=== PATIENT | male | born 1960 | race Caucasian/White ===

== ENCOUNTER → 2022-02-23 09:32 | Outpatient (CLI) | payer OTHER, SELFPAY ==
[2022-02-23 10:18] LABS: Add Manual Diff / Slide Review NO; Basophils Absolute Auto 0 /uL (0-100); Basophils Percent Auto 0.5 % (0-2); Eosinophils Absolute Auto 100 /uL (0-450); Eosinophils Percent Auto 1.3 % (2-4); Hematocrit 44.4 % (41-53); Hemoglobin 15.2 g/dL (13.5-17.5); Lymphocytes Absolute Auto 1600 /uL (1100-4500); Lymphocytes Percent Auto 18.8 % (25-40); Mean Corpuscular HGB Conc 34.3 % (30-36); Mean Corpuscular Hemoglobin 32.2 PG (26-34); Mean Corpuscular Volume 93.8 fL (80-100); Monocytes Absolute Auto 1100 /uL (0-900); Monocytes Percent Auto 13.1 % (3-14); Neutrophils Absolute Auto 5700 /uL (1500-7000); Neutrophils Percent Auto 66.3 % (50-75); Platelet Count 219 X10^3/uL (150-400); Red Blood Cell Count 4.73 X10^6/uL (4.5-5.9); Red Cell Distribution Width 13.6 % (11.6-14.8); White Blood Cell Count 8.6 X10^3/uL (4.5-11.0)
[2022-02-23 10:32] LABS: Hemoglobin A1C% w Est Avg Glu 5.2 % (4.0-6.0)
[2022-02-23 10:44] LABS: Alanine Aminotransferase 36 IU/L (<50); Albumin 4.4 g/dL (3.5-5.0); Albumin Globulin Ratio 1.3 (1.0-2.8); Alkaline Phosphatase 57 U/L (38-126); Aspartate Aminotransferase 36 IU/L (17-59); BUN Creatinine Ratio 18.5 (6-22); Bilirubin Total 0.8 mg/dL (0.2-1.3); Blood Urea Nitrogen 15 mg/dL (9-20); Calcium 9.1 mg/dL (8.4-10.2); Carbon Dioxide 27 mmol/L (22-32); Chloride 106 mmol/L (98-107); Cholesterol 189 mg/dL (140-199); Estimated Glomerular Filt Rate > 60 mL/min (>60); Globulin 3.3 g/dL (1.7-4.1); Glucose 88 mg/dL (80-110); HDL Cholesterol 52 mg/dL (40-60); HEMOLYSIS 20 (0-50); LDL Cholesterol Calculated 107 mg/dL (<100); Potassium 4.5 mmol/L (3.4-5.1); Sodium 139 mmol/L (137-145); Total Protein 7.7 g/dL (6.3-8.2); Triglycerides 151 mg/dL (35-150)
[2022-02-23 12:06] LABS: Hep C Virus Ab w/Reflex Quant NEGATIVE s/c (NEGATIVE)
== END ==
PROVIDERS: PCP Family Medicine; Referring Provider Family Medicine; Visit Provider Family Medicine
DX: Z11.59 Encounter for screening for other viral diseases (principal); N52.9 Male erectile dysfunction, unspecified; T74.11XA Adult physical abuse, confirmed, initial encounter
CPT/HCPCS: 36415; 80053; 80061; 83036; 85025; 86803

== ENCOUNTER → 2023-03-13 12:15 | Outpatient (CLI) | payer MEDICARE, OTHER, SELFPAY ==
[2023-03-13 14:09] LABS: Alanine Aminotransferase 50 IU/L (<50); Albumin 4.2 g/dL (3.5-5.0); Albumin Globulin Ratio 1.4 (1.0-2.8); Alkaline Phosphatase 54 U/L (38-126); Aspartate Aminotransferase 45 IU/L (17-59); BUN Creatinine Ratio 21.3 (6-22); Bilirubin Total 0.6 mg/dL (0.2-1.3); Blood Urea Nitrogen 19 mg/dL (9-20); Calcium 9.9 mg/dL (8.4-10.2); Carbon Dioxide 28 mmol/L (22-32); Chloride 104 mmol/L (98-107); Cholesterol 192 mg/dL (140-199); Estimated Glomerular Filt Rate > 60 mL/min (>60); Glucose 93 mg/dL (80-110); HDL Cholesterol 56 mg/dL (40-60); HEMOLYSIS < 15 (0-50); LDL Cholesterol Calculated 116 mg/dL (<100); Potassium 4.5 mmol/L (3.4-5.1); Sodium 139 mmol/L (137-145); Total Protein 7.2 g/dL (6.3-8.2); Triglycerides 100 mg/dL (35-150)
[2023-03-13 14:35] LABS: Prostate Specific Antigen Scrn < 0.064 ng/mL (0.1-4.0)
== END ==
PROVIDERS: PCP Family Medicine; Referring Provider Family Medicine; Visit Provider Family Medicine
DX: E78.5 Hyperlipidemia, unspecified (principal); Z12.5 Encounter for screening for malignant neoplasm of prostate; Z85.46 Personal history of malignant neoplasm of prostate; Z00.00 Encounter for general adult medical examination without abnormal findings
CPT/HCPCS: 36415; 80053; 80061; G0103

== ENCOUNTER → 2023-03-21 10:36 | Outpatient (CLI) | payer MEDICARE, OTHER, SELFPAY ==
--- NOTE | 2023-03-21 10:38 | DI.US.S_ITS ---
PROCEDURE: US ABD AORTA ANEURYSM SCREEN INDICATIONS: SCREENING TECHNIQUE: Real time scanning was performed of the aorta and iliac arteries, with image documentation. COMPARISON: None. FINDINGS: Aorta: Proximal aortic diameter measures 2.4 cm. Mid-aorta measures 2 cm. Distal aortic diameter is 1.8 cm. Iliac arteries: Right common iliac artery measures 1.1 cm. Left common iliac artery measures 1.1 cm. IMPRESSION: Negative for aneurysm. Dictated by: Wicho Rivera M.D. on 03/21/2023 at 12:50 Approved by: Wicho Rivera M.D. on 03/21/2023 at 12:50
--- NOTE | 2023-03-21 10:38 | DI.CT.S_ITS ---
PROCEDURE: CT LUNG LOW DOSE SCREENING INDICATIONS: Low Dose Chest CT for Lung cancer screening TECHNIQUE: Noncontrast 2.0-2.5 mm thick sections acquired from the pulmonary apices to the posterior costophrenic angles. 7 mm thick axial MIP, and 5 mm coronal and sagittal reformats were then acquired. For radiation dose reduction, the following was used: automated exposure control, adjustment of mA and/or kV according to patient size. COMPARISON: None. FINDINGS: Image quality: Diagnostic, given the low radiation dose technique. Lungs and pleura: No acute airspace opacities. No pulmonary nodules. No pleural effusion or pneumothorax. Mediastinum: Heart size is normal. No pericardial effusion. No mediastinal adenopathy by size criteria. Thoracic aorta and central pulmonary arteries are normal in size. Esophagus is normal in caliber. No hiatal hernia. Bones and chest wall: No suspicious bony lesions. No vertebral body compression fractures. No axillary or supraclavicular adenopathy by size criteria. Ill-defined low-density thyroid nodules are present bilaterally. Abdomen: Visualized upper abdomen solid organs and bowel loops appear normal in the absence of contrast. IMPRESSION: 1. Bilateral hypodense thyroid nodules. If further characterization is warranted, thyroid ultrasound is recommended. 2. No suspicious pulmonary nodules or acute airspace opacities. LUNG-RADS 1; annual CT surveillance recommended for high-risk patients. Dictated by: Dolly Goldsmith M.D. on 03/21/2023 at 13:40 Approved by: Dolly Goldsmith M.D. on 03/21/2023 at 14:07
== END ==
PROVIDERS: PCP Family Medicine; Referring Provider Family Medicine; Visit Provider Family Medicine
DX: Z13.6 Encounter for screening for cardiovascular disorders (principal); F17.210 Nicotine dependence, cigarettes, uncomplicated; Z00.00 Encounter for general adult medical examination without abnormal findings; E04.2 Nontoxic multinodular goiter; E78.5 Hyperlipidemia, unspecified; Z12.2 Encounter for screening for malignant neoplasm of respiratory organs; Z85.46 Personal history of malignant neoplasm of prostate
CPT/HCPCS: 71271; 76706

== ENCOUNTER → 2023-07-03 12:52 | Outpatient (CLI) | payer MEDICARE, OTHER, SELFPAY ==
--- NOTE | 2023-07-03 12:54 | DI.US.S_ITS ---
PROCEDURE: US THYROID INDICATIONS: NODULES ON CT TECHNIQUE: Real-time scanning was performed of the thyroid gland, with image documentation. COMPARISON: CT lung low-dose screening 03/21/2023. FINDINGS: Right: Thyroid lobe measures 5.1 x 2.7 x 1.9 cm, and is homogeneous in echotexture. Left: Thyroid lobe measures 4.3 x 2.1 x 1.9 cm, and is homogenous in echotexture. Isthmus: 0.3 cm thick. Nodule number: 1 Location: Left superior Size: 4.3 x 2.1 x 1.4 cm. Composition: Solid Echogenicity: Isoechoic Shape: wider than tall. Margins: Smooth Echogenic foci: None Total points: 3 ACR TI-RADS category: Mildly suspicious Nodule number: 2 Location: Right mid Size: 2.9 x 1.5 x 2.7 cm. Composition: Mixed cystic and solid Echogenicity: Isoechoic Shape: wider than tall. Margins: Smooth Echogenic foci: None Total points: 2 ACR TI-RADS category: Not suspicious IMPRESSION: Mildly suspicious 4.3 cm left nodule (nodule 1). Finding meets criteria for ultrasound-guided fine-needle aspiration per ACR TI-RADS guidelines as indicated below. ACR TI-RADS definitions and recommendations: TI-RADS 1 (benign): 0 points. FNA not needed. TI-RADS 2 (not suspicious): 2 points. FNA not needed. TI-RADS 3 (mildly suspicious): 3 points. * FNA if 2.5 cm or larger, follow up if 1.5 cm or larger (at 1, 3, and 5 years). TI-RADS 4 (moderately suspicious): 4-6 points. * FNA if 1.5 cm or larger, follow up if 1 cm or larger (at 1, 2, 3, and 5 years). TI-RADS 5 (highly suspicious): 7 points or more. * FNA if 1 cm or larger, follow up if 0.5 cm or larger (every year for 5 years). Approved by: Evelina Kamara M.D. on 07/04/2023 at 9:26
== END ==
PROVIDERS: PCP Family Medicine; Referring Provider Family Medicine; Visit Provider Family Medicine
DX: E04.2 Nontoxic multinodular goiter (principal)
CPT/HCPCS: 76536

== ENCOUNTER → 2024-03-25 09:38 | Outpatient (CLI) | payer MEDICARE, OTHER, SELFPAY ==
[2024-03-25 10:32] LABS: Add Manual Diff / Slide Review NO; Basophils Absolute Auto 0 /uL (0-100); Basophils Percent Auto 0.3 % (0-2); Eosinophils Absolute Auto 100 /uL (0-450); Eosinophils Percent Auto 0.8 % (2-4); Hematocrit 47.9 % (41-53); Hemoglobin 16.3 g/dL (13.5-17.5); Lymphocytes Absolute Auto 1700 /uL (1100-4500); Lymphocytes Percent Auto 19.4 % (25-40); Mean Corpuscular Hemoglobin 32.5 PG (26-34); Mean Corpuscular Volume 95.5 fL (80-100); Monocytes Absolute Auto 1000 /uL (0-900); Neutrophils Absolute Auto 5900 /uL (1500-7000); Neutrophils Percent Auto 67.5 % (50-75); Platelet Count 210 X10^3/uL (150-400); Red Blood Cell Count 5.02 X10^6/uL (4.5-5.9); Red Cell Distribution Width 13.8 % (11.6-14.8); White Blood Cell Count 8.7 X10^3/uL (4.5-11.0)
[2024-03-25 11:37] LABS: Alanine Aminotransferase 42 IU/L (<50); Albumin 4.5 g/dL (3.5-5.0); Albumin Globulin Ratio 1.6 (1.0-2.8); Alkaline Phosphatase 72 U/L (38-126); Aspartate Aminotransferase 43 IU/L (17-59); BUN Creatinine Ratio 16.5 (6-22); Bilirubin Total 0.7 mg/dL (0.2-1.3); Blood Urea Nitrogen 15 mg/dL (9-20); Calcium 9.8 mg/dL (8.4-10.2); Carbon Dioxide 26 mmol/L (22-32); Chloride 107 mmol/L (98-107); Cholesterol 205 mg/dL (140-199); Estimated Glomerular Filt Rate > 60 mL/min (>60); Globulin 2.8 g/dL (1.7-4.1); Glucose 86 mg/dL (80-110); HDL Cholesterol 66 mg/dL (40-60); HEMOLYSIS < 15 (0-50); LDL Cholesterol Calculated 112 mg/dL (<100); Potassium 4.4 mmol/L (3.4-5.1); Sodium 141 mmol/L (137-145); Total Protein 7.3 g/dL (6.3-8.2); Triglycerides 134 mg/dL (35-150)
[2024-03-25 11:56] LABS: Prostate Specific Antigen Scrn < 0.064 ng/mL (0.1-4.0)
[2024-03-26 15:17] LABS: HIV 1 & 2 Ab/Ag 4th Gen Combo NEGATIVE (NEGATIVE)
== END ==
PROVIDERS: PCP Family Medicine; Referring Provider Family Medicine; Visit Provider Family Medicine
DX: Z00.00 Encounter for general adult medical examination without abnormal findings; E78.5 Hyperlipidemia, unspecified; Z12.5 Encounter for screening for malignant neoplasm of prostate; I82.402 Acute embolism and thrombosis of unspecified deep veins of left lower extremity; Z85.46 Personal history of malignant neoplasm of prostate
CPT/HCPCS: 36415; 80053; 80061; 81241; 85025; 85300; 85303; 85306; 85598; 85613; 86147; 87389; G0103

== ENCOUNTER → 2024-03-27 11:28 | Outpatient (CLI) | payer MEDICARE, OTHER, SELFPAY ==
[2024-03-27 12:37] LABS: INR 1.2 (0.9-1.3); Prothrombin Time 13.8 SECONDS (9.4-12.5)
[2024-03-27 12:40] LABS: PTT Partial Thromboplastin Tim 41 SECONDS (25.1-36.5)
== END ==
PROVIDERS: PCP Family Medicine; Referring Provider Family Medicine; Visit Provider Family Medicine
DX: I82.402 Acute embolism and thrombosis of unspecified deep veins of left lower extremity (principal)
CPT/HCPCS: 36415; 85610; 85730

== ENCOUNTER → 2024-04-15 11:45 | Outpatient (CLI) | payer MEDICARE, OTHER, SELFPAY ==
--- NOTE | 2024-04-15 11:46 | DI.CT.S_ITS ---
PROCEDURE: CT LUNG LOW DOSE SCREENING INDICATIONS: lung screening TECHNIQUE: Noncontrast 2.0-2.5 mm thick sections acquired from the pulmonary apices to the posterior costophrenic angles. 7 mm thick axial MIP, and 5 mm coronal and sagittal reformats were then acquired. For radiation dose reduction, the following was used: automated exposure control, adjustment of mA and/or kV according to patient size. COMPARISON: [facility], CT, CT LUNG LOW DOSE SCREENING, 03/21/2023, 10:43. FINDINGS: Image quality: Diagnostic. Lower Neck: No enlarged lymph nodes. Thyroid: Heterogenous appearing thyroid with possible 3.2 cm right thyroid nodule. Axillae: No enlarged lymph nodes. Chest Wall: Unremarkable. Bones: Incidental hemangioma involving the T6 vertebral body. Otherwise, no acute abnormality or significant degenerative findings. Lungs and Pleura: No pneumothorax or pleural effusions. No consolidation or suspicious nodules. Heart: Heart size is normal. No pericardial effusion. Mild LAD coronary artery calcification. Thoracic Vessels: The aorta and pulmonary arteries demonstrate normal size. Mild scattered atheromatous calcification. Mediastinum and Marie: No enlarged lymph nodes. Esophagus: No wall thickening. No hiatal hernia. Upper Abdomen: Visualized upper abdomen solid organs and bowel loops appear normal. IMPRESSION: No suspicious pulmonary nodules. LUNG-RADS 1; continued annual screening, if eligible. Clinically Significant Non-pulmonary Findings: Heterogenous thyroid gland possibly containing nodules up to 3.2 cm. Recommend dedicated ultrasound of the thyroid for ACR risk stratification. Dictated by: Alton Marquis M.D. on 04/15/2024 at 16:37 Approved by: Alton Marquis M.D. on 04/15/2024 at 16:42
== END ==
PROVIDERS: PCP Family Medicine; Referring Provider Family Medicine; Visit Provider Family Medicine
DX: Z87.891 Personal history of nicotine dependence (principal); Z12.2 Encounter for screening for malignant neoplasm of respiratory organs; I25.10 Atherosclerotic heart disease of native coronary artery without angina pectoris; D18.09 Hemangioma of other sites
CPT/HCPCS: 71271

== ENCOUNTER → 2025-02-05 12:32 | Outpatient (CLI) | payer MEDICARE, OTHER, SELFPAY ==
--- NOTE | 2025-02-05 | PATH_ITS ---
Note [facility] Accession Number: [id number] TESTS RESULT FLAG UNITS REF RANGE LAB Clinician Provided Cytology Information No. of containers..01 Other (Miscellaneous) No. of containers..08 Previously Prepared Cytology Slide Source: LEFT THYROID NODULE DIAGNOSIS: LEFT THYROID NODULE ATYPIA OF UNDETERMINED SIGNIFICANCE. [place] CATEGORY III. ATYPIA OF UNDETERMINED SIGNIFIANCE - NUCLEAR ATYPIA. MOLECULAR STUDIES REQUESTED; RESULTS WILL BE REPORTED SEPARATELY. Pathologist ICD10: R89.6 Signed out by: Joyce Alfonso MD, Pathologist NPI- [id number] Performed by: Farzad Stoll, [place] ([facility]) Gross description: 30 CC, RED, CLEAR RECIEVED: IN CYTOLYT WITH 9 ALCOHOL FIXED AND 9 QUICK STAINED SLIDES ALSO 1 RNA VIAL WILL ON 05-21-2026.VO /VDU 02/08/2025 0935 Local FLAG LEGEND: L-Low Normal,H-High Normal,LL-Alert Low,HH-Alert High <-Panic Low,>-Panic High,A-Abnormal,AA-Critical Abnormal Performed at: 01 [address] [facility], [place] [address] Altno Rosario MD, Performed at: [address] [facility], [place], [place] [id number] MD lAton Rosario MD Phone: [phone]
--- NOTE | 2025-02-05 12:35 | DI.US.S_ITS ---
PROCEDURE: US FINE NEEDLE ASPIRATION INDICATIONS: Thyroid nodule biopsy TECHNIQUE: The indications, alternatives, benefits, risks, and complications of the procedure were explained to the patient. Written informed consent was obtained and placed in the chart. The thyroid region was examined sonographically and a site was chosen for ultrasound guided percutaneous sampling. The skin was prepared and draped in the usual fashion, and anesthetized with 1% lidocaine infiltrated from the skin down to the thyroid gland. Multiple passes were then performed, with contents emptied into an appropriate pathology specimen container. A bandage was applied to the area of access at completion of the study. COMPARISON: [facility], US, US THYROID, 07/03/2023, 13:10. FINDINGS: Location(s) of lesion(s) sampled: Left thyroid nodule [place]: 25 gauge hypodermic needles. Number of passes: 9 Medications: 1% lidocaine for local anaesthesia. Complications: None. IMPRESSION: Successful ultrasound-guided thyroid nodule fine needle aspiration, with cytology results pending. Please see chart below for management recommendations based on cytology results. [facility] ReportingRecommendationsNon-diagnostic* Repeat US-guided FNA, with on-site cytology evaluation if possible. * Repeated non-diagnostic nodules without high suspicion US features: close observation vs surgical consult. * Consider surgery if nodule has high suspicion US features, grows >20% in 2 dimensions on followup, or patient has clinical risk factors for malignancy. Benign* If nodule has high suspicion US features: repeat US and FNA within 12 months. * If nodule has low to intermediate suspicion US features: repeat US at 12-24 months. If nodule grows (20% increase in at least 2 dimensions, with minimal increase of 2 mm or >50% change in volume), or development of new suspicious US features, then repeat FNA or continue followup. * If nodule has very low suspicion US features: followup US at >24 months. Atypia of undetermined significance, follicular lesion of undetermined significanceRepeat FNA, molecular testing, followup US, or surgical consult.Follicular neoplasm, suspicious for follicular neoplasmSurgical consult; also consider molecular testing. Suspicious for malignancySurgical consult.MalignantSurgical consult. Dictated by: Andrew LIAO Interpreted: Jayant Wilcox MD on 02/15/2025 at 8:49 Transcribed by: BRIGETTE on 02/15/2025 at 8:49 Approved by: Jayant Wilcox M.D. on 02/15/2025 at 14:03
== END ==
LOC: US 12:35
PROVIDERS: PCP Family Medicine; Referring Provider Family Medicine; Visit Provider Family Medicine
DX: E04.1 Nontoxic single thyroid nodule (principal)
CPT/HCPCS: 10005

== ENCOUNTER → 2025-04-06 11:51 | Outpatient (CLI) | payer MEDICARE, OTHER, SELFPAY ==
[2025-04-06 12:45] LABS: Hematocrit 41.5 % (41-53); Hemoglobin 14.4 g/dL (13.5-17.5); Mean Corpuscular HGB Conc 34.7 % (30-36); Mean Corpuscular Hemoglobin 32.7 PG (26-34); Mean Corpuscular Volume 94.2 fL (80-100); Platelet Count 170 X10^3/uL (150-400)
[2025-04-06 13:00] LABS: Alanine Aminotransferase 52 IU/L (<50); Albumin 4.3 g/dL (3.5-5.0); Albumin Globulin Ratio 1.5 (1.0-2.8); Alkaline Phosphatase 51 U/L (38-126); Blood Urea Nitrogen 17 mg/dL (9-20); Calcium 9.3 mg/dL (8.4-10.2); Carbon Dioxide 27 mmol/L (22-32); Chloride 106 mmol/L (98-107); Cholesterol 178 mg/dL (140-199); Estimated Glomerular Filt Rate > 60 mL/min (>60); Globulin 2.9 g/dL (1.7-4.1); Glucose 98 mg/dL (70-99); HDL Cholesterol 47 mg/dL (40-60); HEMOLYSIS < 15 (0-50); Potassium 3.9 mmol/L (3.4-5.1); Sodium 139 mmol/L (137-145); Total Protein 7.2 g/dL (6.3-8.2); Triglycerides 196 mg/dL (35-150)
== END ==
PROVIDERS: PCP Family Medicine; Referring Provider Family Medicine; Visit Provider Family Medicine
DX: Z00.00 Encounter for general adult medical examination without abnormal findings (principal); Z12.5 Encounter for screening for malignant neoplasm of prostate; E78.5 Hyperlipidemia, unspecified; E04.1 Nontoxic single thyroid nodule; Z85.46 Personal history of malignant neoplasm of prostate
CPT/HCPCS: 36415; 80053; 80061; 85027; G0103

== ENCOUNTER → 2025-04-15 08:52 | Outpatient (CLI) | payer MEDICARE, OTHER, SELFPAY ==
--- NOTE | 2025-04-15 08:55 | DI.US.S_ITS ---
PROCEDURE: US THYROID INDICATIONS: lung cancer screen TECHNIQUE: Real-time scanning was performed of the thyroid gland, with image documentation. COMPARISON: [facility], US, US THYROID, 07/03/2023, 13:10. FINDINGS: Thyroid: Right lobe measures 4.7 x 3.3 x 3.3 cm. Left lobe measures 5.4 x 2.3 x 2.2 cm. Isthmus is 0.6 cm thick. Echotexture is homogeneous. Nodule number: 1 Location: Left mid Size: 3.5 x 2.2 x 3.2 cm compared to 4.3 x 2.1 x 1.4 cm. Composition: Next Echogenicity: Hypoechoic Shape: wider than tall. Margins: Lobulated Echogenic foci: None Total points: 3 ACR TI-RADS category: 3 Nodule number: 2 Location: Right mid Size: 2.7 x 1.5 x 1.5 cm compared to 2.9 x 1.5 x 2.7 cm. Composition: Solid Echogenicity: Hypoechoic Shape: wider than tall. Margins: Smooth Echogenic foci: None Total points: 4 ACR TI-RADS category: 4 IMPRESSION: Stable appearance of category 3 in category 4 lesions. Previous left nodule demonstrate FNA. Recommend continued interval imaging follow-up if benign. ACR TI-RADS definitions and recommendations: TI-RADS 1 (benign): 0 points. FNA not needed. TI-RADS 2 (not suspicious): 2 points. FNA not needed. TI-RADS 3: 3 points. * FNA if 2.5 cm or larger, follow up if 1.5 cm or larger (at 1, 3, and 5 years). TI-RADS 4: 4-6 points. * FNA if 1.5 cm or larger, follow up if 1 cm or larger (at 1, 2, 3, and 5 years). TI-RADS 5: 7 points or more. * FNA if 1 cm or larger, follow up if 0.5 cm or larger (every year for 5 years). Dictated by: Jaylyn Ramos M.D. on 04/15/2025 at 16:52 Approved by: Jaylyn Ramos M.D. on 04/15/2025 at 16:55
--- NOTE | 2025-04-15 08:55 | DI.CT.S_ITS ---
PROCEDURE: CT LUNG LOW DOSE SCREENING INDICATIONS: lung cancer screen TECHNIQUE: Noncontrast 2.0-2.5 mm thick sections acquired from the pulmonary apices to the posterior costophrenic angles. 7 mm thick axial MIP, and 5 mm coronal and sagittal reformats were then acquired. For radiation dose reduction, the following was used: automated exposure control, adjustment of mA and/or kV according to patient size. COMPARISON: [facility], CT, CT LUNG LOW DOSE SCREENING, 04/15/2024, 11:47. FINDINGS: Image quality: Diagnostic. Lower Neck: No enlarged lymph nodes. Thyroid: Thyroid nodules, largest on right measuring 3 cm, please correlate with recent thyroid ultrasound. Axillae: No enlarged lymph nodes. Chest Wall: Unremarkable. Bones: Degenerative changes of the spine. Lungs and Pleura: No pneumothorax or pleural effusions. No consolidation or suspicious nodules. Heart: Heart size is normal. Mild coronary artery calcifications. No pericardial effusion. Thoracic Vessels: Ascending thoracic aortic aneurysm measuring 4.7 cm. Mediastinum and Marie: No enlarged lymph nodes. Esophagus: No wall thickening. No hiatal hernia. Upper Abdomen: Visualized upper abdomen solid organs and bowel loops appear normal. IMPRESSION: No suspicious pulmonary nodules. LUNG-RADS 1; continued annual screening, if eligible. Clinically Significant Non-pulmonary Findings: Ascending thoracic aortic aneurysm measuring 4.7 cm. Dictated by: Elton Pandey M.D. on 04/17/2025 at 13:28 Approved by: Elton Pandey M.D. on 04/17/2025 at 13:58
== END ==
LOC: US 08:54
PROVIDERS: PCP Family Medicine; Referring Provider Family Medicine; Visit Provider Family Medicine
DX: Z12.2 Encounter for screening for malignant neoplasm of respiratory organs (principal); Z87.891 Personal history of nicotine dependence; E04.2 Nontoxic multinodular goiter
CPT/HCPCS: 71271; 76536